=== PATIENT | male | born 1945 | race Caucasian/White ===

== ENCOUNTER 2024-08-01 08:57 | Outpatient (CLI) | payer MEDICARE | END 2024-08-01 08:58 | disposition home or self-care (01) | LOC: CSHULT 08:57 | PROVIDERS: ATTEND Urology | DX: N21.0 Calculus in bladder (principal); N20.0 Calculus of kidney; R93.5 Abnormal findings on diagnostic imaging of other abdominal regions, including retroperitoneum; N28.1 Cyst of kidney, acquired | CPT/HCPCS: 74018; 76770 ==